=== PATIENT | male | born 1955 | race African-American/Black ===

== ENCOUNTER 2024-03-26 23:12 | Inpatient (IN) | payer OTHER ==
[~2024-03-26] VITALS: Ht 162.6 cm; Wt 43.2 kg
[2024-03-27] VITALS (14 sets, daily range): BP systolic 86–116; BP diastolic 54–103; PULSE 107–139; RESP 20–32; TEMP 36.55848–37.2252; O2SAT 90–100
[2024-03-27] MEDS: HYDROCODONE/ACETAMINOPHEN 5/325MG TABLET PO ONE (00:49)
[2024-03-27] MEDS: SODIUM CHLORIDE 0.9% 250 ML IV ONE (01:00)
[2024-03-27 02:16] LABS: CHLORIDE 104 mEq/L (98-107); POTASSIUM 3.9 mEq/L (3.5-5.1); SODIUM 135 mEq/L (136-145)
[2024-03-27 02:17] LABS: BASOPHILS % 0.4 % (0.0-2.0); CALCIUM 8.4 mg/dL (8.7-10.4); CARBON DIOXIDE 24 mEq/L (21-32); EOSINOPHILS % 0.2 % (0.0-5.0); HEMATOCRIT. 37.5 % (42.0-52.0); HEMOGLOBIN. 11.9 g/dL (14.0-18.0); LYMPHOCYTES % 9.8 % (20.0-50.0); MEAN CORPUSCULAR HEMOGLOBIN 26.5 pg (28.0-32.0); MEAN CORPUSCULAR HGB CONC 31.7 g/dL (31.0-37.0); MEAN CORPUSCULAR VOLUME 83.6 fL (80.0-94.0); MEAN PLATELET VOLUME 8.4 fl (7.4-10.4); MONOCYTES % 7.5 % (2.0-8.0); NEUTROPHILS % 82.1 % (40.0-76.0); PLATELET 281 x1000/uL (130-400); RED BLOOD CELL COUNT 4.49 mill/uL (4.7-6.1); RED CELL DISTRIBUTION WIDTH 19.3 % (11.6-14.6); WHITE BLOOD COUNT 12.6 x1000/uL (4.5-11.0)
[2024-03-27 02:22] LABS: CREATININE 1.3 mg/dL (0.6-1.3); GLUCOSE 84 mg/dL (70-105); UREA NITROGEN BLOOD 33 mg/dL (9-23)
[2024-03-27 02:41] LABS: ETHANOL BLOOD < 10 mg/dL (<10)
[2024-03-27] MEDS ORDERED: CEFEPIME 1GM IN DEXT 5% 50ML IV ONE (03:00)
[2024-03-27] MEDS: ACETAMINOPHEN 1000MG/100ML 100 ML IV NR (03:11)
[2024-03-27] MEDS: CEFEPIME 1GM/50ML 50 ML IV NR (03:11)
[2024-03-27] MEDS: ALBUTEROL (0.5%) 2.5MG/0.5ML NEB HHN NR (03:20)
[2024-03-27 03:38] LABS: CLARITY URINE CLEAR (CLEAR); COLOR URINE DARK YELLOW (YELLOW); GLUCOSE URINE 3+ (NEGATIVE); KETONES URINE NEGATIVE (NEGATIVE); LEUKOCYTE ESTERASE URINE TRACE (NEGATIVE); NITRITE URINE POSITIVE (NEGATIVE); OCCULT BLOOD URINE TRACE (NEGATIVE); PH URINE 5.5 (4.5-8.0); PROTEIN URINE 3+ (NEGATIVE); SPECIFIC GRAVITY URINE 1.025 (1.005-1.030)
[2024-03-27] MEDS: VANCOMYCIN 1G PREMIX 200 ML IV NR (03:41)
[2024-03-27 03:51] LABS: TROPONIN I HIGH SENSITIVITY 31 ng/L (3.0-53)
[2024-03-27 03:57] LABS: PROTHROMBIN TIME 11.4 sec (9.6-11.0)
[2024-03-27 04:15] LABS: *AMPHETAMINES SCREEN URINE NEGATIVE (NEGATIVE); *BARBITURATES SCREEN URINE NEGATIVE (NEGATIVE); *BENZODIAZEPINES SCREEN URINE NEGATIVE (NEGATIVE); *COCAINE SCREEN URINE NEGATIVE (NEGATIVE); CANNABINOID URINE SCREEN NEGATIVE (NEGATIVE); ECSTASY MDMA SCREEN URINE NEGATIVE (NEGATIVE); METHADONE URINE SCREEN NEGATIVE (NEGATIVE); OPIATES URINE SCREEN PRESUMPTIVE POSITIVE (NEGATIVE); PHENCYCLIDINE URINE SCREEN NEGATIVE (NEGATIVE)
[2024-03-27] MEDS: MORPHINE SULFATE 2 MG/ML INJ (NOT FOR IM USE) IV NR (04:31)
[2024-03-27 05:48] LABS: RBC URINE 0-2 /hpf (0-2); SQUAMOUS EPITHELIAL CELL URINE NONE SEEN /lpf (RARE/1+); WBC URINE 0-2 /hpf (0-2)
[2024-03-27 05:50] LABS: BACTERIA URINE NONE SEEN
[2024-03-27] MEDS ORDERED: GUAIFENESIN 200MG/10ML SUGAR FREE UDC PO PRN (09:00)
[2024-03-27] MEDS ORDERED: DOCUSATE SODIUM 100MG CAPSULE PO PRN (09:00)
[2024-03-27] MEDS: NA PHOS,M-B/NA PHOS,DI-BA ENEMA 118ML PR NR (09:00)
[2024-03-27] MEDS ORDERED: MAGNESIUM/ALUMINUM HYDROXIDE/SIMETHICONE 30ML UDC PO PRN (09:00)
[2024-03-27] MEDS ORDERED: MEROPENEM 1,000 MG in SODIUM CHLORIDE 0.9% 100 ML IV SCH (09:00)
[2024-03-27] MEDS ORDERED: CLONIDINE 0.1MG TABLET PO PRN (09:00)
[2024-03-27] MEDS ORDERED: IPRATROPIUM/ALBUTEROL 0.5-3(2.5)MG/3ML NEB NEB PRN (09:00)
[2024-03-27] MEDS ORDERED: NITROGLYCERIN 0.4MG TABLET SL SL PRN (09:00)
[2024-03-27] MEDS: IPRATROPIUM/ALBUTEROL 0.5-3(2.5)MG/3ML NEB HHN SCH (09:17)
[2024-03-27 09:48] LABS: BG BASE EXCESS -6.7 mmol/L (-2.0-3.0); BG CARBOXYHEMOGLOBIN 0.8 % (0.5-1.5); BG DEOXYHEMOGLOBIN 3.9 % (0.0-5.0); BG FRACTION INSPIRED OXYGEN 70; BG HCO3 ACT 17.8 mmol/L (21.0-28.0); BG METHEMOGLOBIN 0.3 % (0.5-1.5); BG OXYGEN SATURATION 96.1 % (94.0-98.0); BG PCO2 32.3 mmHg (35.0-48.0); BG PH 7.359 (7.350-7.450); BG PO2 86.9 mmHg (83.0-108.0); BG SAMPLE SITE LEFT BRACHIAL; BG TOTAL HEMOGLOBIN 12.2 g/dL (13.5-17.5); BG VENT MODE MASK - BIPAP
[2024-03-27] MEDS: ASCORBIC ACID 500 MG TABLET PO SCH (10:09)
[2024-03-27] MEDS: GUAIFENESIN/DM 600MG/30MG ER TAB 12HR PO SCH (10:09)
[2024-03-27] MEDS: FAMOTIDINE 20MG TABLET PO SCH (10:10)
[2024-03-27] MEDS: ENOXAPARIN 30MG/0.3ML SYR SUBCUT SCH (10:10)
[2024-03-27] MEDS: ZINC SULFATE 220 MG ( 50 ) CAPSULE PO SCH (10:10)
[2024-03-27 11:46] LABS: IRON 15 ug/dL (65-175)
[2024-03-27 11:47] LABS: TRIGLYCERIDE 136 mg/dL (0-150)
[2024-03-27 11:48] LABS: LDL CHOLESTEROL 70 mg/dL (5-100)
[2024-03-27 11:49] LABS: CHOLESTEROL 133 mg/dL (<200); HDL CHOLESTEROL 39 mg/dL (>55); TOTAL IRON BINDING CAPACITY 472 ug/dl (250-425)
[2024-03-27 11:52] LABS: T4 FREE 1.38 ng/dL (0.89-1.76); THYROID STIMULATING HORMONE 0.93 uIU/mL (0.55-4.78)
[2024-03-27 12:26] LABS: VITAMIN B12 SERUM 450 pg/mL (211-911)
[2024-03-27 12:27] LABS: FOLIC ACID (FOLATE) SERUM > 20.00 ng/mL (>5.38)
[2024-03-27] MEDS: MEROPENEM 1G/100ML IV SCH (13:26)
[2024-03-27] MEDS: ACETAMINOPHEN 325MG TABLET PO PRN (13:38)
[2024-03-27] MEDS: LACTULOSE 20G/30ML UDC PO SCH (14:00)
[2024-03-27 16:51] LABS: CREATINE KINASE MB FRACTION 0.5 ng/mL (0.5-3.6)
[2024-03-27] MEDS: ALPRAZOLAM 0.25 MG TABLET PO PRN (21:23)
[2024-03-28] VITALS (19 sets, daily range): BP systolic 77–112; BP diastolic 54–67; PULSE 101–134; RESP 11–36; TEMP 36.16956–37.7808; O2SAT 93–100
[2024-03-28 00:10] LABS: CREATINE KINASE MB FRACTION 0.8 ng/mL (0.5-3.6)
[2024-03-28] MEDS: ACETAMINOPHEN 325MG TABLET PO PRN (02:20)
[2024-03-28] MEDS: LACTATED RINGERS 500 ML IV ONE ×2 (03:48→09:26)
[2024-03-28 06:58] LABS: CHLORIDE 107 mEq/L (98-107); POTASSIUM 5.3 mEq/L (3.5-5.1); SODIUM 139 mEq/L (136-145)
[2024-03-28 06:59] LABS: CALCIUM 7.4 mg/dL (8.7-10.4); CARBON DIOXIDE 17 mEq/L (21-32)
[2024-03-28 07:05] LABS: UREA NITROGEN BLOOD 56 mg/dL (9-23)
[2024-03-28 07:06] LABS: ALANINE AMINOTRANSFERASE 46 IU/L (10-49); ALBUMIN 2.9 g/dL (3.2-4.8); ASPARTATE AMINOTRANSFERASE 109 IU/L (<34)
[2024-03-28 07:07] LABS: BILIRUBIN TOTAL 0.5 mg/dL (0.1-1.0); PROTEIN TOTAL 5.5 g/dL (6.0-8.3)
[2024-03-28 07:36] LABS: HEMATOCRIT. 35.2 % (42.0-52.0); HEMOGLOBIN. 10.6 g/dL (14.0-18.0); MEAN CORPUSCULAR HEMOGLOBIN 26.6 pg (28.0-32.0); MEAN CORPUSCULAR HGB CONC 30.2 g/dL (31.0-37.0); MEAN CORPUSCULAR VOLUME 88.2 fL (80.0-94.0); MEAN PLATELET VOLUME 9.2 fl (7.4-10.4); PLATELET 255 x1000/uL (130-400); RED BLOOD CELL COUNT 3.99 mill/uL (4.7-6.1); RED CELL DISTRIBUTION WIDTH 20.5 % (11.6-14.6); WHITE BLOOD COUNT 13.5 x1000/uL (4.5-11.0)
[2024-03-28 07:43] LABS: DIFFERENTIAL COMMENT 1
[2024-03-28 07:49] LABS: CREATININE 2.9 mg/dL (0.6-1.3); GLUCOSE 49 mg/dL (70-105)
[2024-03-28] MEDS: DEXTROSE 50% WATER 50ML SYRINGE IV ONE (08:09)
[2024-03-28] MEDS: DEXT 5%/LACTATED RINGERS 1,000 ML IV SCH ×2 (08:09→18:23)
[2024-03-28 08:32] LABS: TROPONIN I HIGH SENSITIVITY 43 ng/L (3.0-53)
[2024-03-28 08:33] LABS: CREATINE KINASE 410 IU/L (46-171)
[2024-03-28] MEDS: SODIUM ZIRCONIUM CYCLOSILICATE 10GM/PACKET PO NR (09:26)
[2024-03-28] MEDS: VANCOMYCIN 750MG PMX (XELLIA) 150 ML IV SCH (10:29)
[2024-03-28 14:26] LABS: CREATININE URINE RANDOM 59.7 mg/dL
[2024-03-28 17:10] LABS: ANISOCYTOSIS 2+; PLATELET ESTIMATE NORMAL
[2024-03-28] MEDS: MAGNESIUM 2 G PREMIX 50 ML IV NR (17:54)
[2024-03-28] MEDS: ZOLPIDEM TARTRATE 5MG TABLET PO PRN (22:19)
[2024-03-28] MEDS: ONDANSETRON HCL 4MG/2ML INJ IV PRN (23:48)
[2024-03-29] VITALS (14 sets, daily range): BP systolic 93–134; BP diastolic 61–96; PULSE 121–144; RESP 10–24; TEMP 36.28068–36.89184; O2SAT 84–100
[2024-03-29 06:42] LABS: CHLORIDE 113 mEq/L (98-107); POTASSIUM 4.5 mEq/L (3.5-5.1); SODIUM 142 mEq/L (136-145)
[2024-03-29 06:45] LABS: CARBON DIOXIDE 19 mEq/L (21-32)
[2024-03-29 06:46] LABS: CALCIUM 7.4 mg/dL (8.7-10.4)
[2024-03-29 06:50] LABS: CREATININE 2.8 mg/dL (0.6-1.3)
[2024-03-29 06:51] LABS: GLUCOSE 131 mg/dL (70-105); UREA NITROGEN BLOOD 65 mg/dL (9-23)
[2024-03-29 06:52] LABS: ALANINE AMINOTRANSFERASE 64 IU/L (10-49); ALBUMIN 2.7 g/dL (3.2-4.8); ASPARTATE AMINOTRANSFERASE 132 IU/L (<34)
[2024-03-29 06:53] LABS: BILIRUBIN TOTAL 0.4 mg/dL (0.1-1.0); PROTEIN TOTAL 5.4 g/dL (6.0-8.3)
[2024-03-29] MEDS: SODIUM CHLORIDE 0.45% 1,000 ML IV SCH (08:30)
[2024-03-29] MEDS ORDERED: DILTIAZEM HCL 30MG TABLET PO SCH (12:00)
[2024-03-29] MEDS: METOPROLOL TARTRATE 25MG TABLET PO SCH (12:02)
[2024-03-29] MEDS ORDERED: METOPROLOL TARTRATE 5MG/5ML VIAL IV PRN (16:30)
[2024-03-29] MEDS: METOPROLOL TARTRATE 50MG TABLET PO SCH (21:33)
[2024-03-30] VITALS (16 sets, daily range): BP systolic 136–157; BP diastolic 83–124; PULSE 103–140; RESP 13–23; TEMP 36.33624–37.11408; O2SAT 95–100
[2024-03-30 13:07] LABS: HEMATOCRIT. 29.6 % (42.0-52.0); HEMOGLOBIN. 9.2 g/dL (14.0-18.0); MEAN CORPUSCULAR HEMOGLOBIN 26.1 pg (28.0-32.0); MEAN CORPUSCULAR HGB CONC 31.1 g/dL (31.0-37.0); MEAN CORPUSCULAR VOLUME 84.1 fL (80.0-94.0); MEAN PLATELET VOLUME 8.4 fl (7.4-10.4); PLATELET 162 x1000/uL (130-400); RED BLOOD CELL COUNT 3.52 mill/uL (4.7-6.1); RED CELL DISTRIBUTION WIDTH 20.2 % (11.6-14.6); WHITE BLOOD COUNT 8.3 x1000/uL (4.5-11.0)
[2024-03-30 13:08] LABS: POTASSIUM 4.2 mEq/L (3.5-5.1)
[2024-03-30 13:10] LABS: CALCIUM 8.2 mg/dL (8.7-10.4)
[2024-03-30 13:26] LABS: DIFFERENTIAL COMMENT 1
[2024-03-30 13:46] LABS: CREATININE 1.9 mg/dL (0.6-1.3)
[2024-03-31 04:28] LABS: PLATELET ESTIMATE NORMAL
== END 2024-03-31 01:37 | disposition short-term general hospital (02) | DRG 871 ==
LOC: ER 23:12 → EDBEDREQTM 03-27 04:21 → 5EST 03-27 09:08
PROVIDERS: ADMIT Internal Medicine; ATTEND Internal Medicine
PROC: 5A09357 Assistance with Respiratory Ventilation, Less than 24 Consecutive Hours, Continuous Positive Airway Pressure (ICD-10-PCS; 2024-03-27)
PROC: 5A09357 Assistance with Respiratory Ventilation, Less than 24 Consecutive Hours, Continuous Positive Airway Pressure (ICD-10-PCS; principal; 2024-03-28)
DX: A41.9 Sepsis, unspecified organism (principal); I21.4 Non-ST elevation (NSTEMI) myocardial infarction; J96.01 Acute respiratory failure with hypoxia; N17.0 Acute kidney failure with tubular necrosis; J18.9 Pneumonia, unspecified organism; I50.23 Acute on chronic systolic (congestive) heart failure; E46 Unspecified protein-calorie malnutrition; E87.1 Hypo-osmolality and hyponatremia; M62.82 Rhabdomyolysis; N39.0 Urinary tract infection, site not specified; Z68.1 Body mass index [BMI] 19.9 or less, adult; J44.0 Chronic obstructive pulmonary disease with (acute) lower respiratory infection; I13.0 Hypertensive heart and chronic kidney disease with heart failure and stage 1 through stage 4 chronic kidney disease, or unspecified chronic kidney disease; E87.3 Alkalosis; E87.20 Acidosis, unspecified; I42.9 Cardiomyopathy, unspecified; D50.9 Iron deficiency anemia, unspecified; D63.8 Anemia in other chronic diseases classified elsewhere; D72.820 Lymphocytosis (symptomatic); E83.51 Hypocalcemia; E87.5 Hyperkalemia; I25.10 Atherosclerotic heart disease of native coronary artery without angina pectoris; K56.41 Fecal impaction; N40.1 Benign prostatic hyperplasia with lower urinary tract symptoms; N28.1 Cyst of kidney, acquired; E16.2 Hypoglycemia, unspecified; M48.061 Spinal stenosis, lumbar region without neurogenic claudication; D75.89 Other specified diseases of blood and blood-forming organs; M47.816 Spondylosis without myelopathy or radiculopathy, lumbar region; G89.29 Other chronic pain; R33.8 Other retention of urine; F41.9 Anxiety disorder, unspecified; N48.89 Other specified disorders of penis; R15.9 Full incontinence of feces; N13.9 Obstructive and reflux uropathy, unspecified; N18.9 Chronic kidney disease, unspecified; Z90.49 Acquired absence of other specified parts of digestive tract; Z88.6 Allergy status to analgesic agent
CPT/HCPCS: 36415; 36600; 71045; 74176; 76770; 80048; 80053; 80061; 80202; 80305; 80320; 81003; 82375; 82550; 82553; 82570; 82607; 82746; 82805; 82962; 83036; 83540; 83550; 83605; 83735; 83880; 84100; 84145; 84156; 84439; 84443; 84484; 85025; 93005; 93306; 93923; 93970; 94640; 94660; 99291; A6261; J0692; J1650; J2185; J2270; J2405; J3370; J3475; J7050; J7121; G0480; J0131